=== PATIENT | male | born 1965 | race Two or more races ===

== ENCOUNTER 2024-11-18 11:20 | Outpatient (REF) | payer SELFPAY ==
[2024-11-18 12:58] LABS: MANUAL DIFF FLAG NO
[2024-11-18 13:22] LABS: Basophils Percent Auto 0.5 % (0-2); Eosinophils Absolute Auto 0.1 X10*3/uL (0.0-0.4); Eosinophils Percent Auto 1.5 % (0-4); Hemoglobin 13.8 g/dl (14.0-18.0); Imm Gran Abs Auto 0.01 X10*3/uL (0.00-0.03); Imm Gran Pct Auto 0.3 % (0.0-0.4); Lymphocytes Absolute Auto 1.3 X10*3/uL (1.2-4.9); Mean Corpuscular HGB Conc 32.9 g/dl (31.0-36.0); Mean Corpuscular Volume 88.2 fL (80.0-98.0); Mean Platelet Volume 10.1 fL (9.4-12.4); Monocytes Absolute Auto 0.3 X10*3/uL (0.1-1.2); Neutrophils Absolute Auto 2.2 x10*3/uL (2.0-8.3); Neutrophils Percent Auto 55.7 % (45-73); Platelet Count 246 X10*3/uL (160-400); Red Blood Count 4.76 X10*6/uL (4.60-5.80); White Blood Count 3.9 X10*3/uL (4.8-10.8)
[2024-11-18 13:41] LABS: Alanine Aminotransferase 20 U/L (0-40); Albumin Level 4.2 g/dL (3.5-5.0); Alkaline Phosphatase 62 U/L (39-117); Anion Gap 7 (12-20); Aspartate Amino Transferase 21 U/L (5-37); Bilirubin Total 1.3 mg/dL (0.0-1.0); Blood Urea Nitrogen 17 mg/dL (9-16); Carbon Dioxide 30 mmol/L (22-29); Chloride 105 mmol/L (96-108); Cholesterol 184 mg/dL (<200); Estimated Glomerular Filt Rate > 60; Glucose Random 91 mg/dL (60-115); HDL Cholesterol 58 mg/dL (>40); LDL Cholesterol Calculated 111 mg/dL (<100); Potassium 4.2 mmol/L (3.3-5.1); Sodium 138 mmol/L (135-145); Total Protein 7.2 g/dL (6.5-8.0); Triglycerides 75 mg/dL (<150)
[2024-11-18 13:57] LABS: TSH reflex Free T4 1.11 uIU/mL (0.32-4.0)
[2024-11-18 14:03] LABS: Syphilis Screen Nonreactive (Nonreactive)
[2024-11-18 14:07] LABS: HBS Num1 0.38 mIU/mL (0-7.99); HBc Num1 0.08 S/CO (0.00-0.79); HBsAGNum1 0.34 S/CO (0.00-0.99); HIV AB/AG Nonreactive (Nonreactive); HIV Num 1 0.06 S/CO (0.00-0.99); Hepatitis A Antibody IgM 0.25 Index (0-0.79); Hepatitis B Core Antibody Nonreactive (Nonreactive); Hepatitis B Surface Antigen Negative (Negative); ~HepC Num1 0.11 S/CO (0.00-0.79); ~Hepatitis A Antibody IgM Nonreactive (Nonreactive); ~Hepatitis B Surface Antibody NONREACTIVE (Nonreactive); ~Hepatitis C Antibody Nonreactive (Nonreactive)
[2024-11-18 14:09] LABS: Reflex LDLD? No
== END 2024-11-18 11:21 | disposition home or self-care (01) ==
LOC: HO.HHCL 11:20
PROVIDERS: Visit Provider Internal Medicine
DX: R10.13 Epigastric pain (principal); L65.9 Nonscarring hair loss, unspecified; Z70.8 Other sex counseling
CPT/HCPCS: 36415; 80053; 80061; 84443; 85025; 86704; 86706; 86709; 86780; 86803; 87340; 87389

== ENCOUNTER 2025-03-04 11:21 | Outpatient (REF) | payer OTHER, SELFPAY ==
--- OUTSIDE RECORDS SUMMARY | 2025-02-27 11:15 | XMS_ITS | Encounter Summary ---
Author Organization [facility] Address [address] [facility] [address] [place] [address] Care Team Providers Care Hospital Nurse Name Role Phone Krala Xiao MD Primary Care Provider + Reason for Visit * Reason Comments Annual Exam Encounter Details Date Type Department Care Team ([facility] st Contact Info) Description 02/27/2025 11:15 AM EDT Office Visit C [facility] [address] [place], [place] [id number] TarkaTsering, OD [address] [place] [address] Conjunctival melanosis of both eyes (Primary Dx); Hypermetropia, bilateral; Dry eyes, bilateral; Posterior vitreous detachment of both eyes Social History Tobacco Use Types Packs/Day Years Used Date Smoking Tobacco: Never Smokeless Tobacco: Never Alcohol Use Standard Drinks/Week Comments Never 0 (1 standard drink = 0.6 oz pur e alcohol) Housing Stability Answer Date Recorded What is your housing situation today? I have jorge sing 11/18/[address] you li ve. Do you have problems with any of the following? None of the above 11/18/2024 Food Insecurity Answer Date Recorded Within the past 12 months, y ou worried that your food would run out before you got money to buy more: Never True 11/18/2024 Within the past 12 months,th e food you bought just didn't last and you didn't have enough money to get more: Never True Transportation Answer Date Recorded In the past 12 months, has l ack of transportation kept you from medical appts, meetings, work or from getting things needed for daily living? No 11/18/2024 Utilities Answer Date Recorded In the past 12 months, has t he electric, gas, oil or water company threatened to shut off services in your home? No 11/18/2024 Depression Answer Date Recorded Patient Health Questionnaire-2 Score 0 11/18/2024 Internet Access Answer Date Recorded Internet Access Q1 No 11/18/2024 Internet Access Q2 I do not want or need it 10/31 Sex and Gender Information Value Date Recorded Sex Assigned at Male 07/16/2024 10:18 AM EST Legal Sex Male 10:17 AM EST Gender Identity Male 07/16/2024 10:18 AM EST Sexual Orientation Straight 07/16/2024 10 :18 AM EST documented as of this encounter Progress Notes * Tsering Hudson, OD - 02/27/2025 11:15 AM EDT Eye Care Progress Note Patient ID: Alejandro Vargas is a 59 y.o. male. Chief Complaint Annual Exam HPI Patient reports blurry vision both eyes (OU) at near. Patient has not been wearing any glasses for near. Patient is concerns about brown spots on white of eyes both eyes (OU). PAWAN: 10-15 years Last edited by Tsering Hudson, OD on 02/27/2025 11:49 AM. Current Medications[1] Medical History[2] Surgical History[3] Family History[4] Tobacco Use: Low Risk (02/27/2025) Tobacco Smoking Tobacco Use: Never Smokeless Tobacco Use: Never Passive Exposure: Not on file Allergies[5] ROS Positive for: Eyes Negative for: Constitutional, Gastrointestinal, Neurological, Skin, Genitourinary, Musculoskeletal,HENT, Endocrine, Cardiovascular, Respiratory, Psychiatric, Allergic/Imm, Heme/Lymph Last edited by Tsering Hudson, OD on 02/27/2025 11:49 AM. Base Eye Exam Visual Acuity (Snellen - Linear) Right Left Both Dist sc 20/20-1 20/20-1 Near sc 20/25 Tonometry ([facility] , 11:22 AM) Right Left Pressure 19 18 Pupils Pupils APD Right PERRL None Left PERRL None Visual Ramos (Counting fingers) Left Right Full Full Extraocular Movement Right Left Full Full Neuro/Psych Oriented x3: Yes Mood/Affect: Normal Dilation Both eyes: 1.0% tropicamide @ 11:25AM Slit Lamp and Fundus Exam External Exam Right Left External Normal Normal Slit Lamp Exam Right Left Lids/Lashes 1+ MGD UL/LL, (+) saponification of tear film 1+ MGD UL/LL, (+) saponification of tear film Conjunctiva/Sclera Circumlimbal/diffuse melanosis, 1+ paillae temporal LL Circumlimbal/diffuse melanosis, 1+ paillae temporal LL Cornea Lasik flap with superior hinge, small scar inferior to visual axis, endo pigment inferiorly,(+) Salgado Stahli line Lasik flap with superior hinge, (+) Salgado Stahli line Anterior Chamber Deep and quiet, angles open gr 3 Deep and quiet, angles open gr 3 Iris Flat, round; (-) TID Flat, round; (-) TID Lens Clear Clear Fundus Exam Right Left Vitreous (+) PVD (+) PVD Disc [place] and healthy [place] and healthy C/D Ratio Vertical 0.40 0.45 C/D Ratio Horizontal 0.40 0.45 Macula Flat, even pigmentation; tr ERM nasal Flat, even pigmentation Vessels AV 2/3, normal course and caliber AV 2/3, normal course and caliber Periphery No holes/tears/detachments 360 No holes/tears/detachments 360 Refraction Manifest Refraction Sphere Cylinder Dist VA Add Right +0.50 Sphere 20/20 +2.00 Left +0.50 Sphere 20/20 +2.00 Near VA Both: 20/20 Comments: NRA/PRA: +2.00/-1.50 Final Rx Sphere Cylinder Right +2.50 Sphere Left +2.50 Sphere Expiration Date: 02/27/2026 Assessment and Plan Diagnoses and all orders for this visit: Hypermetropia, bilateral - Dispensed updated spec Rx Dry eyes, bilateral - Recommended the use of artificial tears in both eyes 1gtt 2-4x/day. Patient given handout with OTC drop recommendations. - Patient does warm compresses frequently, continue ORN Conjunctival melanosis of both eyes - Patient educated on benign finding. Advised patient that this is a racial variant. Monitor. Posterior vitreous detachment of both eyes - RTC immediately if flashes/floaters/curtains over vision occur RTC in 2 years for comprehensive eye exam or sooner as needed Tsering Hudson, OD 02/27/2025, 12:10 PM [1] Current Outpatient Medications Medication Sig Dispense Refill sucralfate (Carafate) 1 g tablet TAKE 1 TABLET(1 GRAM) BY MOUTH FOUR TIMES DAILY FOR 20 DAYS 80 tablet 0 No current facility-administered medications for this visit. [2] History reviewed. No pertinent past medical history. [3] Past Surgical History: Procedure Laterality Date REFRACTIVE SURGERY Bilateral [4] No family history on file. [5] No Known Allergies documented in this encounter Plan of Treatment Not on file documented as of this encounter Visit Diagnoses Diagnosis Conjunctival melanosis of both eyes- Primary Hypermetropia, bilateral Dry eyes, bilateral Posterior vitreous detachment of both eyes Vitreous degeneration documented in this encounter Care Teams Hospital Nurse Relationship Specialty Start Date End Date Karla Xiao MD [address] [place] [id number] PCP - General Internal Medicine 11/18/24 documented as of this encounter
--- OUTSIDE RECORDS SUMMARY | 2025-03-04 10:30 | XMS_ITS | Encounter Summary ---
Author Organization [employer] Address [address] [place] [address] Care Team Providers Care Manager Of Operations Name Role Phone Karla Xiao MD Primary Care Provider + Encounter Details Date Type Department Care Team (Late st Contact Info) Description 03/04/2025 10:30 AM EDT Office Visit [facility] [address], [place] [phone] Karla Xiao MD [address] [place], [place] [phone] Change in voice (Primary Dx); Epigastric pain; Tubular adenoma of colon Social History Tobacco Use Types Packs/Day Years Used Date Smoking Tobacco: Never Passive Smoke Exposure: Never Smokeless Tobacco: Never Tobacco Cessation:Counseling Given: Not Answered Alcohol Use Standard Drinks/Week Comments Never 0 (1 standard drink = 0.6 oz pur e alcohol) Depression Answer Date Recorded Patient Health Questionnaire-9 Score 24 03/04/2025 Patient Health Questionnaire-9 Score 24 03/04/2025 Last PHQ-9: Questionnaire Data Not on file 0 03/04/2025 Housing Stability Answer Date Recorded What is your housing situation today? I have jorge sommer 11/18/[address] you li [...] Answer Date Recorded Patient Health Questionnaire-2 Score 6 03/04/2025 Internet Access Answer Date Recorded Internet Access Q1 No 11/18/2024 Internet Access Q2 I do not want or need it 10/31 Sex and Gender Information Value Date Recorded Sex Assigned at Male 07/16/2024 10:18 AM EST Legal Sex Male 10:17 AM EST Gender Identity Male 07/16/2024 10:18 AM EST Sexual Orientation Straight 07/16/2024 10 :18 AM EST documented as of this encounter Last Filed Vital Signs Vital Sign Reading Time Taken Comments Blood Pressure 110/62 03/04/2025 10:28 AM EDT Pulse 82 03/04/2025 10:28 AM EDT Temperature 36.2 C (97.1 F) 03/04/2025 10:28 AM EDT Respiratory Rate 24 03/04/2025 10:28 AM EDT Oxygen Saturation - - Inhaled Oxygen Concentration - - Weight 79.6 kg (175 lb 6.4 oz) 03/04/2025 10:28 AM EDT Height 177.8 cm (5' 10 ) 03/04/2025 10:28 AM EDT Body Mass Index 25.17 03/04/2025 10:28 AM EDT documented in this encounter Functional Status * Over the past 2 weeks, how often have you been bothered by any of the following problems? Question Answer Date of Assessment Author Patient Health Questionnaire -2 Score 6 03/04/2025 11:21 AM EDT Carey Dominguez MA * Little interest or pleasure in doing things Answer Date of Assessment Author Nearly every day 03/04/2025 11:21 AM EDT Carey Dominguez MA * Feeling down, depressed, or hopeless Answer Date of Assessment Author Nearly every day 03/04/2025 11:21 AM EDT Carey Dominguez MA * Trouble falling or staying asleep, or sleeping too much Answer Date of Assessment Author Nearly every day 03/04/2025 11:21 AM Carey Worthy MA * Feeling tired or having little energy Answer Date of Assessment Author Nearly every day 03/04/2025 11:21 AM Carey Worthy MA * Poor appetite or overeating Answer Date of Assessment Author Nearly every day 03/04/2025 11:21 AM Carey Worthy MA * Feeling bad about yourself - or that you are a failure or have let yourself or your family down Answer Date of Assessment Author Nearly every day 03/04/2025 11:21 AM Carey Worthy MA * Trouble concentrating on things, such as reading the newspaper or watching television Answer Date of Assessment Author Nearly every day 03/04/2025 11:21 AM Carey Worthy MA * Moving or speaking so slowly that other people could have noticed? Or the opposite - being so fidgety or restless that you have been moving around a lot more than usual. Answer Date of Assessment Author Nearly every day 03/04/2025 11:21 AM Carey Worthy MA * Thoughts that you would be better off or hurting yourself in some way Answer Date of Assessment Author Not at all 03/04/2025 11:21 AM Carey Worthy MA * Patient Health Questionnaire-9 Score Answer Date of Assessment Author 24 03/04/2025 11:21 AM Carey Worthy MA * Over the last 2 weeks, how often have you been bothered by any of the following problems? Question Answer Date of Assessment Author Feeling nervous, anxious, or on edge 3 03/04/2025 11:20 AM Carey Worthy MA Not being able to stop or co ntrol worrying 3 03/04/2025 11:20 AM Carey Worthy MA Worrying too much about diff erent things 3 03/04/2025 11:20 AM Carey Worthy MA Trouble relaxing 3 03/04/2025 11:20 AM Carey Worthy MA Being so restless that it is hard to sit still 3 03/04/2025 11:20 AM Carey Worthy MA Becoming easily annoyed or irritable 1 03/04/2025 11:20 AM Carey Worthy MA Feeling afraid as if somethi ng awful might happen 3 03/04/2025 11:20 AM EDT Carey Dominguez MA TIGRE-7 Total Score 19 03/04/2025 11:20 AM EDT Carey Dominguez MA documented as of this encounter Miscellaneous Notes * Patient Education Note - Karla Xiao MD - 03/04/2025 3:08 PM EDT Images from the original note were not included. Patient Education Table of Contents ERGE en adultos: qu?? debe saber (GERD in Adults: What to Know) To view videos and all your education online visit, [email or web address] or scan this QR code with your smartphone. Access to this content will in one year. ERGE en adultos: qu?? debe saber GERD in Adults: What to Know El reflujo gastroesof?gico (RGE) es cuando el ?cido del est?kameron sube al es?fago. El es?fago es la parte del cuerpo que transporta los alimentos desde la boca al est?kameron. Normalmente, los alimentos bajan y permanecen en el est?kameron para ser digeridos. Dasha con RGE, los alimentos y el ?cido estomacal pueden volver a subir. Usted puede tener isabella enfermedad llamada enfermedad de reflujo gastroesof?gico (ERGE) si el reflujo: Sucede a menudo. Le causa s?ntomas muy intensos. Hace que el es?fago est?? sensible e hinchado. Con el tiempo, la ERGE puede ocasionar sergei?os agujeros, llamado ?lceras, en el revestimiento del es?fago. ?Cu?les son las causas? La ERGE se debe a un problema en el m?sculo que se encuentra entre el es?fago y el est?kameron. Barb m?sculo se conoce ibrahima esf?nter esof?gico inferior (EEI). Cuando est?? d?dari o no es normal, no se analisa ibrahima deber?a. Bruin significa que los alimentos y el ?cido estomacal pueden subir al es?fago. Barb m?sculo puede estar d?dari si usted: Fuma o consume productos que contienen tabaco. Est?? embarazada. Tiene un tipo de hernia que se llama hernia de hiato. Consume ciertos alimentos y bebidas. Bruin incluye lo siguiente: ? Alcohol. ? Caf?. ? Chocolate. ? Cebollas. ? Menta. ?Qu?? incrementa el riesgo? Tener sobrepeso. Tener isabella enfermedad que afecta el tejido conjuntivo. Analia antiinflamatorios no esteroideos (MELODY) ibrahima el ibuprofeno. ?Cu?les son los signos o s?ntomas? Acidez estomacal. Dificultad para tragar. Dolor al tragar. Sensaci?n de tener un bulto en la garganta. Un sabor amargo en la boca. Mal aliento. Est?kameron inflamado o con malestar. Eructos. Dolor en el pecho. Otras afecciones tambi?n pueden provocar dolor en el pecho. Es importante que consulte al m?dico si siente dolor en el pecho. Sibilancias. Es la emisi?n de sonidos de silbidos agudos al respirar, m?s a menudo al exhalar. Isabella tos a argenis plazo o tos nocturna. ?C?mo se diagnostica? La ERGE se puede diagnosticar en funci?n de los antecedentes m?dicos y de un examen f?sico. Tambi?npueden hacerle pruebas. Pueden incluir: Isabella endoscopia. Esta prueba se hace para observar el est?kameron y el es?fago con isabella c?lorenzo muy sergei?a. Isabella prueba de degluci?n de bario. Esta prueba se hace para observar la forma y el sherice?o del es?fago y determinar si est?? funcionando norman. Estudios del es?fago para revisar lo siguiente: ? Niveles de ?cido. ? Presi?n. ?C?mo se trata? El tratamiento puede depender de la intensidad de los s?ntomas. Puede incluir lo siguiente: Cambios en jordan dieta y viktor cotidiana. Medicamentos. Isabella cirug?a. Siga estas instrucciones en jordan casa: Comida y bebida Siga un plan de alimentaci?n ibrahima se lo haya indicado el m?dico. Es posible que deba evitar ciertos alimentos y bebidas. Pueden incluir: ? Caf?? y t?? basilio, con o sin cafe?na. ? Alcohol. ? Bebidas energ?raymundo y deportivas. ? Bebidas gaseosas o refrescos. ? Chocolate y cacao. ? Menta y esencia de menta. ? [place] y cebolla. ? R?charu picante. ? Alimentos ?cidos y condimentados. Bruin incluye lo siguiente: ? Pimientos. ? [place] en polvo y mobley en polvo. ? Vinagre. ? Salsas picantes y salsa barbacoa. ? C?tricos y jugos. Bruin incluye lo siguiente: ? Naranjas. ? Hank. ? Colin. ? Alimentos que contengan tomate. Bruin incluye lo siguiente: ? Salsa gab y pizza con salsa gab. ? [place]. ? Salsa. ? Alimentos fritos y grasos. Bruin incluye lo siguiente: ? Rosquillas. ? Duke fritas. ? Duke fritas en bolsa. ? Aderezos con alto contenido de grasa. ? German con alto contenido de grasa. Bruin incluye lo siguiente: ? Perros calientes y salchichas. ? Chuletas. ? Jam?n y tocino. ? Productos l?cteos ricos en grasas. Bruin incluye lo siguiente: ? Leche entera. ? [place]. ? Queso crema. Consuma sergei?as cantidades de comida con m?s frecuencia. No consuma grandes cantidades de comida. Evite beber mucho l?quido con las comidas. Intente no comer erick las 2 o 3?horas previas a acostarse. Trate de no acostarse inmediatamente despu?s de comer. No lynda ejercicios ian despu?s de comer. Estilo de viktor Si tiene sobrepeso, baje isabella cantidad de peso que sea saludable para usted. Consulte a jordan m?dico para bajar de peso de manera hyatt. No fume, vapee ni consuma nicotina o tabaco. Use ropa holgada. No use nada apretado alrededor de la cintura. A la hora de dormir, pruebe lo siguiente: ? Levante la cabecera de la cama aproximadamente 6?pulgadas (15?cm). Para hacerlo puede usar isabella cu?a. ? Acu?stese del lado eddie. Intente reducir el nivel de estr?s. Si necesita ayuda para lograrlo, consulte a jordan m?dico. Instrucciones generales [place] cheryle medicamentos ?nicamente seg?n las indicaciones. No tome aspirina ni ibuprofeno a menos que se lo indiquen. Controle si hay alg?n cambio en cheryle s?ntomas. No se incline hacia adelante si eso empeora cheryle s?ntomas. Comun?quese con un m?dico si: Aparecen nuevos s?ntomas. Tiene dificultad para hacer lo siguiente: ? Beber. ? [place]agar. ? [place]. Siente dolor al tragar. Tiene sibilancias. Tiene tos que no desaparece. Tiene ronquera. Los s?ntomas no mejoran con el tratamiento. Solicite ayuda de inmediato si: Siente un dolor repentino en estas partes del cuerpo: ? El brazo. ? El devi. ? La nancy?bula. ? Los dientes. ? La espalda. De repente se siente transpirado, mareado o aturdido. Se desmaya. Siente falta de aire o dolor en el pecho. Vomita, y el v?cristino: ? Es valarie, amarillo o basilio. ? Parece tener gina o borra de caf?. Defeca y las heces son saenz, sanguinolentas o negras. Estos s?ntomas pueden indicar isabella emergencia. Llame al 911 de inmediato. No espere a lakshmi si los s?ntomas desaparecen. No conduzca por cheryle propios medios hasta el hospital. Esta informaci?n no tiene ibrahima fin reemplazar el consejo del m?dico. Aseg?rese de hacerle al m?dicocualquier pregunta que tenga. Document Released: 2006-03-29 Document Updated: 2024-01-01 Document Reviewed: 2024-01-01 [employer] Patient Education ? 2024 engageSimply. * Patient Education Note - Karla Xiao MD - 03/04/2025 3:07 PM EDT Images from the original note were not included. Patient Education Table of Contents ERGE en adultos: cambios en la dieta (GERD in Adults: Diet Changes) To view videos and all your education online visit, [email or web address].com/[email or web address] or scan this QR code with your smartphone. Access to this content will in one year. ERGE en adultos: cambios en la dieta GERD in Adults: Diet Changes Cuando isabella persona tiene enfermedad de reflujo gastroesof?gico (ERGE), es posible que deba hacer cambios en jordan dieta. Elegir los alimentos adecuados puede ayudar a aliviar los s?ntomas. Considere recurrir a un experto en alimentaci?n saludable llamado nutricionista. Barb puede ayudarlo a hacer elecciones alimentarias saludables. Consejos para seguir barb plan Al leer las etiquetas de los alimentos Elija alimentos que tengan bajo contenido de grasas saturadas. Los alimentos que pueden ayudar con los s?ntomas incluyen los siguientes: Alimentos con menos del 5?% de los valores diarios (VD) de grasa. Alimentos con 0?gramos de grasas trans. Al cocinar Cocine los alimentos de formas que no requieran wilmer grasa. Estas formas incluyen las siguientes: ? Hornear. ? Cocer al vapor. ? Grillar. ? Hervir. Para agregar sabor, trate de consumir hierbas con bajo contenido de picante y acidez. Evite cynthia?r los alimentos. Planificaci?n de las comidas Lynda comidas sergei?as erick el d?a en lugar de hacer 3?comidas abundantes. Coma lentamente y en un lugar donde se sienta relajado. Si se lo indic?? el m?dico, evite: ? Consumir alimentos que le ocasionen s?ntomas. Lleve un registro de los alimentos para identificaraquellos que le causen s?ntomas. ? Alcohol. ? Beber wilmer cantidad de l?quido con las comidas. Instrucciones generales Erick 2 a 3?horas despu?s de comer, evite: ? Agacharse. ? Realizar actividad f?paco. ? Acostarse. Masticar chicle sin az?car despu?s de las comidas. ?Qu?? alimentos kristen comer? Siga isabella dieta saludable. Trate de incluir: Alimentos con gran cantidad de fibra. Bruin incluye lo siguiente: ? Frutas y verduras. ? Cereales integrales y legumbres. Productos l?cteos con bajo contenido de grasa. Carne magra, pescado y aves. Claras de huevo. Los alimentos que causan s?ntomas en otra persona pueden no causarle s?ntomas a usted. Trabaje con el m?dico para hallar alimentos que emma seguros para usted. Es posible que los productos que se enumeran m?s arriba no emma todos los alimentos y las bebidas que puede consumir. Consulte a jordan nutricionista para obtener m?s informaci?n. Es posible que los productos detallados arriba no constituyan isabella lista completa de los alimentos ylas bebidas que puede analia. Consulte a un nutricionista para obtener m?s informaci?n. ?Qu?? alimentos kristen evitar? Limitar algunos de estos alimentos puede ayudar a aliviar los s?ntomas. Cada persona es diferente. Hable con un nutricionista o con jordan m?dico para que lo ayude a conocer los alimentos exactos que debe evitar. Algunos de los alimentos que evitar pueden incluir: Frutas Frutas que emma muy ?cidas. Estas pueden ser las frutas c?tricas ibrahima la naranja, el pomelo, la pi?a y el petersen?n. Verduras Verduras fritas, ibrahima las duke fritas. Verduras, salsas o aderezos elaborados con grasa agregada y verduras ?cidas. Estos pueden incluir los tomates y los productos con tomate, el aj?, la cebolla, el ajo y el r?charu picante. Cereales Pasteles o panes sin levadura con grasa agregada. German y otras prote?bere German de alto contenido graso ibrahima carne grasa de andres o cerdo, salchichas, costillas, jam?n, salchicha, chuy y tocino. German o prote?bere fritas, ibrahima el pescado frito y el natalie frito. Yemas de huevo. Grasas y aceites [place]. Margarina. Lardo. [place] clarificada. Bebidas Caf?? y otras bebidas con cafe?na. Bebidas gaseosas y azucaradas, ibrahima los refrescos y las bebidas energizantes. Jugo de fruta hecho con frutas ?cidas, ibrahima naranja o pomelo. Jugo de tomate. Dulces y postres Chocolate y cacao. [place]. Ali?os y condimentos Menta, ibrahima la menta piperita y la hierbabuena. Condimentos, hierbas o aderezos que ocasionen s?ntomas. Estos pueden incluir el mobley, la salsa picante o los aderezos para ensalada a base de vinagre. Es posible que los productos que se enumeran m?s arriba no emma todos los alimentos y las bebidas que debe evitar. Consulte a jordan nutricionista para obtener m?s informaci?n. Preguntas para hacerle al m?dico Los cambios en la dieta y en la viktor cotidiana a menudo son los primeros pasos que se bright para manejar los s?ntomas de ERGE. Si estos cambios no tunde resultados, consulte al m?dico si debe analia medicamentos. D?nde obtener m?s informaci?n International Foundation for Gastrointestinal Disorders (Fundaci?n Internacional para los Trastornos Gastrointestinales): aboutgerd.org Esta informaci?n no tiene ibrahima fin reemplazar el consejo del m?dico. Aseg?rese de hacerle al m?dicocualquier pregunta que tenga. Document Released: 2006-03-29 Document Updated: 2024-01-01 Document Reviewed: 2024-01-01 Elsevier Patient Education ? 2024 engageSimply. * Patient Education Note - Karla Xiao MD - 03/04/2025 3:06 PM EDT Images from the original note were not included. Patient Education Table of Contents ERGE en adultos: cambios en la dieta (GERD in Adults: Diet Changes) To view videos and all your education online visit, [email or web address] or scan this QR code with your smartphone. Access to this content will in one year. ERGE en adultos: cambios en la dieta GERD in Adults: Diet Changes Cuando isabella persona tiene enfermedad de reflujo gastroesof?gico (ERGE), es posible que deba hacer cambios en jordan dieta. Elegir los alimentos adecuados puede ayudar a aliviar los s?ntomas. Considere recurrir a un experto en alimentaci?n saludable llamado nutricionista. Barb puede ayudarlo a hacer elecciones alimentarias saludables. Consejos para seguir barb plan Al leer las etiquetas de los alimentos Elija alimentos que tengan bajo contenido de grasas saturadas. Los alimentos que pueden ayudar con los s?ntomas incluyen los siguientes: Alimentos con menos del 5?% de los valores diarios (VD) de grasa. Alimentos con 0?gramos de grasas trans. Al cocinar Cocine los alimentos de formas que no requieran wilmer grasa. Estas formas incluyen las siguientes: ? Hornear. ? Cocer al vapor. ? Grillar. ? Hervir. Para agregar sabor, trate de consumir hierbas con bajo contenido de picante y acidez. Evite cynthia?r los alimentos. Planificaci?n de las comidas Lynda comidas sergei?as erick el d?a en lugar de hacer 3?comidas abundantes. Coma lentamente y en un lugar donde se sienta relajado. Si se lo indic?? el m?dico, evite: ? Consumir alimentos que le ocasionen s?ntomas. Lleve un registro de los alimentos para identificaraquellos que le causen s?ntomas. ? Alcohol. ? Beber wilmer cantidad de l?quido con las comidas. Instrucciones generales Erick 2 a 3?horas despu?s de comer, evite: ? Agacharse. ? Realizar actividad f?paco. ? Acostarse. Masticar chicle sin az?car despu?s de las comidas. ?Qu?? alimentos kristen comer? Siga isabella dieta saludable. Trate de incluir: Alimentos con gran cantidad de fibra. Bruin incluye lo siguiente: ? Frutas y verduras. ? Cereales integrales y legumbres. Productos l?cteos con bajo contenido de grasa. Carne magra, pescado y aves. Claras de huevo. Los alimentos que causan s?ntomas en otra persona pueden no causarle s?ntomas a usted. Trabaje con el m?dico para hallar alimentos que emma seguros para usted. Es posible que los productos que se enumeran m?s arriba no emma todos los alimentos y las bebidas que puede consumir. Consulte a jordan nutricionista para obtener m?s informaci?n. Es posible que los productos detallados arriba no constituyan isabella lista completa de los alimentos ylas bebidas que puede analia. Consulte a un nutricionista para obtener m?s informaci?n. ?Qu?? alimentos kristen evitar? Limitar algunos de estos alimentos puede ayudar a aliviar los s?ntomas. Cada persona es diferente. Hable con un nutricionista o con jordan m?dico para que lo ayude a conocer los alimentos exactos que debe evitar. Algunos de los alimentos que evitar pueden incluir: Frutas Frutas que emma muy ?cidas. Estas pueden ser las frutas c?tricas ibrahima la naranja, el pomelo, la pi?a y el petersen?n. Verduras Verduras fritas, ibrahima las duke fritas. Verduras, salsas o aderezos elaborados con grasa agregada y verduras ?cidas. Estos pueden incluir los tomates y los productos con tomate, el aj?, la cebolla, el ajo y el r?charu picante. Cereales Pasteles o panes sin levadura con grasa agregada. German y otras prote?bere German de alto contenido graso ibrahima carne grasa de andres o cerdo, salchichas, costillas, jam?n, salchicha, chuy y tocino. German o prote?bere fritas, ibrahima el pescado frito y el natalie frito. Yemas de huevo. Grasas y aceites [place]. Margarina. Lardo. [place] clarificada. Bebidas Caf?? y otras bebidas con cafe?na. Bebidas gaseosas y azucaradas, ibrahima los refrescos y las bebidas energizantes. Jugo de fruta hecho con frutas ?cidas, ibrahima naranja o pomelo. Jugo de tomate. Dulces y postres Chocolate y cacao. [place]. Ali?os y condimentos Menta, ibrahima la menta piperita y la hierbabuena. Condimentos, hierbas o aderezos que ocasionen s?ntomas. Estos pueden incluir el mobley, la salsa picante o los aderezos para ensalada a base de vinagre. Es posible que los productos que se enumeran m?s arriba no emma todos los alimentos y las bebidas que debe evitar. Consulte a jordan nutricionista para obtener m?s informaci?n. Preguntas para hacerle al m?dico Los cambios en la dieta y en la viktor cotidiana a menudo son los primeros pasos que se bright para manejar los s?ntomas de ERGE. Si estos cambios no tunde resultados, consulte al m?dico si debe analia medicamentos. D?nde obtener m?s informaci?n International Foundation for Gastrointestinal Disorders (Fundaci?n Internacional para los Trastornos Gastrointestinales): aboutgerd.org Esta informaci?n no tiene ibrahima fin reemplazar el consejo del m?dico. Aseg?rese de hacerle al m?dicocualquier pregunta que tenga. Document Released: 2006-03-29 Document Updated: 2024-01-01 Document Reviewed: 2024-01-01 Elsevier Patient Education ? 2024 [employer] documented in this encounter Plan of Treatment Not on file documented as of this encounter Visit Diagnoses Diagnosis Change in voice- Primary Other voice and resonance disorders Epigastric pain Abdominal pain, epigastric Tubular adenoma of colon Benign neoplasm of colon documented in this encounter Additional Health Concerns Assessment Noted Time PHQ-9 Depression Total Score: 24 025 11:21 AM EDT documented as of this encounter Care Teams Manager Of Operations Relationship Specialty Start Date End Date Karla Xiao MD [address] [place] [address] PCP - General Internal Medicine 11/18/24 documented as of this encounter
--- OUTSIDE RECORDS SUMMARY | 2025-03-04 13:07 | XMS_ITS | Encounter Summary ---
Author Organization [employer] Address [address] [place] [address] Care Team Providers Care Metal Control Worker Name Role Phone Karla Xiao MD Primary Care Provider + Encounter Details Date Type Department Care Team (Latest Contact Info) Description 02/27/2025 Travel Social History Tobacco Use Types Packs/Day Years [...] AM EST documented as of this encounter Plan of Treatment Not on file documented as of this encounter Visit Diagnoses Not on filedocumented in this encounter Care Teams Metal Control Worker Relationship Specialty Start Date End Date Karla Xiao MD [address] [place] [phone] PCP - General Internal Medicine 11/18/24 documented as of this encounter
--- OUTSIDE RECORDS SUMMARY | 2025-03-04 13:07 | XMS_ITS | Encounter Summary ---
Author Organization [employer] Address [address] [facility] [address] [place] [address] Care Team Providers Care Latin Professor Name Role Phone Karla Xiao MD Primary Care Provider + Encounter Details Date Type Department Care Team (Latest Contact Info) Description 03/04/2025 Travel Social History Tobacco Use Types Packs/Day Years Used Date Smoking Tobacco: Never Passive Smoke Exposure: Never Smokeless Tobacco: Never Alcohol Use Standard [...] AM EST documented as of this encounter Functional Status * Over the past 2 weeks, how often have you been bothered by any of the following problems? Question Answer Date of Assessment Author Patient Health Questionnaire -2 Score 6 03/04/2025 11:21 AM EDT Carey Dominguez MA * Little interest or pleasure in doing things Answer Date of Assessment Author Nearly every day 03/04/2025 11:21 AM EDCarey Shaw MA * Feeling down, depressed, or hopeless Answer Date of Assessment Author Nearly every day 03/04/2025 11:21 AM CARLITOST Carey Dominguez MA * Trouble falling or staying asleep, or sleeping too much Answer Date of Assessment Author Nearly every day 03/04/2025 11:21 AM EDCarey Shaw MA * Feeling tired or having little energy Answer Date of Assessment Author Nearly every day 03/04/2025 11:21 AM CARLITOST Carey Dominguez MA * Poor appetite or overeating Answer Date of Assessment Author Nearly every day 03/04/2025 11:21 AM EDT Carey Dominguez MA * Feeling bad about yourself - or that you are a failure or have let yourself or your family down Answer Date of Assessment Author Nearly every day 03/04/2025 11:21 AM Carey Worthy MA * Trouble concentrating on things, such as reading the newspaper or watching television Answer Date of Assessment Author Nearly every day 03/04/2025 11:21 AM CARLITOST Carey Dominguez MA * Moving or speaking so slowly [...] Author Not at all 03/04/2025 11:21 AM EDT Carey Dominguez MA * Patient Health Questionnaire-9 Score Answer Date of Assessment Author 03/04/2025 11:21 AM EDT Carey Dominguez MA * Over the last 2 weeks, how often have you been bothered by any of the following problems? Question Answer Date of Assessment Author Feeling nervous, anxious, or on edge 3 03/04/2025 11:20 AM EDT Carey Dominguez MA Not being able to stop or co ntrol worrying 3 03/04/2025 11:20 AM EDT Carey Dominguez MA Worrying too much about diff erent things 3 03/04/2025 11:20 AM EDT Carey Dominguez MA Trouble relaxing 3 03/04/2025 11:20 AM EDT Carey Dominguez MA Being so restless that it is hard to sit still 3 03/04/2025 11:20 AM EDT Carey Dominguez MA Becoming easily annoyed or irritable 1 03/04/2025 11:20 AM EDT Carey Dominguez MA Feeling afraid as if somethi ng awful might happen 3 03/04/2025 11:20 AM EDT Carey Dominguez MA TIGRE-7 Total Score 19 03/04/2025 11:20 AM EDT Carey Dominguez MA documented as of this encounter Plan of Treatment Not on file documented as of this encounter Visit Diagnoses Not on filedocumented in this encounter Additional Health Concerns Assessment Noted Time PHQ-9 Depression Total Score: 025 11:21 AM EDT documented as of this encounter Care Teams Latin Professor Relationship Specialty Start Date End Date Karla Xiao MD [address] [place] [phone] PCP - General Internal Medicine 11/18/24 documented as of this encounter
--- OUTSIDE RECORDS SUMMARY | 2025-03-04 13:07 | XMS_ITS | Clinical Summary ---
Author Organization [employer] Address [address] [facility] [address] [place] [address] Care Team Providers Care Transfer Table Operator Helper Name Role Phone Karla Xiao MD Primary Care Provider + Allergies No known active allergies Medications sucralfate (Carafate) 1 g tablet Take 1 tablet (1 g) by mouth before breakfast, before lunch, and before evening meal. 60 tablet 03/04/20 25 Active sucralfate (Carafate) 1 g tablet TAKE 1 TABLET(1 GRAM) BY MOUTH FOUR TIMES DAILY FOR 20 DAYS 80 tablet 12/10/19 25 025 Discontinued(Re order (will not trigger notification to Pharmacy)) Active Problems Problem Noted Date Diagnosed Date Sexually transmitted disease counseling 11/20/19 Assessment & Plan (11/19/2024 8:53 AM EDT): We discussed about condom use, he agreed to STI testing Hair loss 11/19/2024 Assessment & Plan (11/19/2024 8:53 AM EDT): Most likely familiar, ordered TSH and follow-up with me Epigastric pain 11/18/2024 Assessment & Plan (11/19/2024 8:53 AM EDT): Rule out H. pylori infection, apparently never treated. Start sucralfate 1 g 3 times daily AC meals x 2 weeks and follow-up with me Order labs We discussed about lifestyle modifications including avoiding sodas, fat and greasy foods, high calorie meals. Advised to have small fracture meals Advised regarding increase water intake and fiber. H. pylori infection 11/15/2024 Change in voice 11/15/2024 Left knee pain 11/15/2024 Low back pain 11/15/2024 Shoulder pain 11/15/2024 Tubular adenoma of colon 11/15/2024 Overview (11/18/2024): Sp colonoscopy at [facility] on 06/2021 Assessment & Plan (11/18/2024 10:30 AM EDT): Sp colonoscopy at [facility] on 06/2021 Next colonoscopy due on 2025 Resolved Problems Problem Noted Date Diagnosed Date Resolved Date Decreased vision in both eyes 11/19/2024 02/27/2025 Assessment & Plan (11/19/2024 8:52 AM EDT): Refer to ophthalmology/eye clinic Chalazion of right upper eyelid 11/18/2024 02/27/2025 Assessment & Plan (11/19/2024 8:52 AM EDT): Reassurance, advised to apply heat to affected area, keep area clean and dry Needs routine eye clinic evaluation Encounters Date Type Department Care Team Description 03/04/2025 10:30 AM EDT Office Visit [facility] [address] [place] [address] [phone] Karla Xiao MD Change in voice (Primary Dx); Epigastric pain; Tubular adenoma of colon 03/04/2025 Travel 02/27/2025 11:15 AM EDT Office Visit [facility] [address] [place], [place] [phone] Tsering Hudson, OD Conjunctival melanosis of both eyes (Primary Dx); Hypermetropia, bilateral; Dry eyes, bilateral; Posterior vitreous detachment of both eyes 02/27/2025 Travel 02/26/2025 Telephone [facility] [address] [place] [address] [phone] Karla Xiao MD Chart Prep 12/10/2024 Telephone [facility] [address] [place] [phone] Karla Xiao MD Appointment Request 12/06/2024 Refill [facility] [address] [place] [address] [phone] Karla Xiao MD from Last 3 Months Immunizations Immunization Administration Dates Next Due Influenza injectable quadriv alent preservative free 04/20/2023,05/23/2022,06/25/2021 Influenza, IIV3, injectable 06/25/2021 Influenza, seasonal, injecta ble, preservative free 04/17/2024 Social History Tobacco Use Types Packs/Day Years [...] is your housing situation today? I have jorgestew sommer 11/18/[address] you [...] Orientation Straight 07/16/2024 10 :18 AM EST Last Filed Vital Signs Vital Sign Reading Time Taken Comments Blood Pressure 110/62 03/04/2025 10:28 AM EDT Pulse 82 03/04/2025 10:28 AM EDT Temperature 36.2 C (97.1 F) 03/04/2025 10:28 AM EDT Respiratory Rate 24 03/04/2025 10:28 AM EDT Oxygen Saturation 99% 11/18/2024 10:15 AM EDT Inhaled Oxygen Concentration - - Weight 79.6 kg (175 lb 6.4 oz) 03/04/2025 10:28 AM EDT Height 177.8 cm (5' 10 ) 03/04/2025 10:28 AM EDT Body Mass Index 25.17 03/04/2025 10:28 AM EDT Plan of Treatment Health Maintenance Due Date Last Done Comments CT Colonography 1967 Colonoscopy 1967 Colorectal Cancer Screening 1967 FIT DNA/Cologuard 1967 FIT 1967 FOBT 1967 Sigmoidoscopy 1967 DTaP/Tdap/Td Vaccines (1 - Tdap) 10/02/1986 Hepatitis B Vaccines (1 of 3 - 19+ 3-dose series) 10/02/1986 Pneumococcal Vaccine: 50+ Years (1 of 1 - PCV) 10/02/2017 Zoster Vaccines (1 of 2) 10/02/2017 COVID-19 Vaccine (3 - season) 2025 05/23/2022, 06/25/2021 Influenza Vaccine (#1) 2025 , 04/20/2023, 05/23/2022, Additional history exists Depression Monitoring 09/01/2025 03/04/2025, 025 Disability Screening 11/18/2025 11/18/2024 SDOH Screening 11/18/2025 11/18/2024 Alcohol/Substance Use Screening 03/04/2026 03/04/2025 Tobacco Screening 03/04/2026 03/04/2025 Lipid Panel 11/18/2029 11/18/2024 RSV Patients and Patients Aged 60 years or older (1 - 1-dose 75+ series) 10/02/2042 HIV Screening Completed 11/18/2024 Hepatitis C Screening Completed 11/18/2024 HIB Vaccines Aged Out No longer eligi ble based on patient's age to complete this topic HPV Vaccines Aged Out No longer eligi ble based on patient's age to complete this topic Hepatitis A Vaccines Aged Out No long er eligible based on patient's age to complete this topic IPV Vaccines Aged Out No longer eligi ble based on patient's age to complete this topic Meningococcal B Vaccine Aged Out No l onger eligible based on patient's age to complete this topic Meningococcal Vaccine Aged Out No afshin emperatriz eligible based on patient's age to complete this topic RSV under 20 months Aged Out No longe r eligible based on patient's age to complete this topic Rotavirus Vaccines Aged Out No longer eligible based on patient's age to complete this topic Procedures Procedure Name Priority Date/Time Associated Diagnosis Comments HEPATITIS PANEL, GENERAL Routine 11/18/2024 11:24 AM EDT Sexually transmitted disease counseling HIV 1/2 ANTIGEN/ANTIBODY, FOURTH GENERATION W/RFL Routine 11/18/2024 11:24 AM EDT Sexually transmitted disease counseling LIPID PANEL WITH REFLEX TO DIRECT LDL Routine 11/18/2024 11:24 AM EDT Epigastric pain from Last 3 Months or Most Recently Relevant to Health Maintenance Results * (ABNORMAL) Lipid Panel with Reflex to Direct LDL (11/18/2024 11:24 AM EDT) Triglycerides 75 <150 mg/dL [facility] Comment:Desirable Triglyceri de: less than 150 mg/dLBorderline High Triglyceride 150-199 mg/dLHigh Triglyceride: 200-499 mg/dLVery High Triglyceride: greater than or equal to 5OO mg/dL Cholesterol 184 <200 mg/dL [facility] Comment:Desirable Cholestero l: less than 200 mg/dLBorderline High Cholesterol: 200-239 mg/dLHigh Cholesterol: greater than 239 mg/dL LDL Cholesterol Calculated 111(H) <100 mg/dL [facility] Comment:Desirable LDL: less than 100 mg/dLNear Optimal/Above Optimal LDL: 110- 129 mg/dLBorderline High LDL: 130-159 mg/dLHigh LDL: 160-189 mg/dLVery High LDL: greater than or equal to 190 mg/dL HDL Cholesterol 58 >40 mg/dL [facility] Comment:Desirable HDL: great er than 40 mg/dL Note: This HDL assay may give artificially low results in patients with liver disease. Blood 11/18/2024 11:2 4 AM EDT 11/18/2024 12:55 PM EDT Karla Xiao MD LAB BLOOD ORDERABLES Fin al Result Performing Organization Address [facility]/ZIP Co de Phone Number [facility] [address] [place] [phone] * Hepatitis Panel, General (11/18/2024 11:24 AM EDT) Hepatitis A IgM Nonreactive Nonreactive [facility] Comment:IgM antibodies to JEWELL V not detected; does not exclude earlyacute or recovered HAV infection. ~Hepatitis B Surface Antibody NONREACTIVE Nonreactive [facility] Comment:Nonreactive: < 8.00 mIU/mL Hepatitis B Core Antibody Nonreactive Nonreactive [facility] Hepatitis C Antibody Nonreactive Nonreactive [facility] Comment:Antibodies to HCV no t detected; does not exclude early acuteHCV infection. Hepatitis B Surface Ag Negative Negative [facility] Blood 11/18/2024 11:2 4 AM EDT 11/18/2024 12:55 PM EDT Karla Xiao MD LAB BLOOD ORDERABLES Fin al Result Performing Organization Address [facility]/ZIP Co de Phone Number [facility] [address] [place] [phone] * HIV-1/2 Antigen and Antibodies, Fourth Generation, with Reflexes (11/18/2024 11:24 AM EDT) HIV AB/AG Nonreactive Nonreactive [facility] Comment:HIV-1 p24 Ag and/or HIV-1/HIV-2 Ab not detected.A test result that is nonreactive does not exclude thepossibility of exposure to or infection with HIV-1 and/orHIV-2. Nonreactive results in this assay for individualswith prior exposure to HIV-1 and/or HIV-2 may be due toantigen and antibody levels that are below the limit ofdetection of this assay.The [employer] HIV Ag/Ab Combo assay result andsupplemental assay results should be interpreted inconjunction with the patient's clinical presentation,history and other laboratory results. If the results areinconsistent with clinical evidence, additional testing issuggested to confirm the result. Blood Venous blood specimen / Unknown 11/18/2024 11:24 AM EDT 11/18/2024 12:55 PM EDT us Karla Xiao MD LAB BLOOD ORDERABLES Fin al Result [facility] [address] [place] [phone] from Last 3 Months or Most Recently Relevant to Health Maintenance Insurance [facility] , [address] [place] [address] Care Teams Transfer Table Operator Helper Relationship Specialty Start Date End Date Karla Xiao MD [address] [place] [phone] PCP - General Internal Medicine 11/18/24
[2025-03-04 16:34] LABS: CT PCR Urine NOT DETECTED (Not Detect.); NG PCR Urine NOT DETECTED (Not Detect.)
== END 2025-03-04 11:22 | disposition home or self-care (01) ==
LOC: HO.HHCL 11:21
PROVIDERS: PCP Internal Medicine; Visit Provider Internal Medicine
DX: Z70.8 Other sex counseling (principal); Z20.2 Contact with and (suspected) exposure to infections with a predominantly sexual mode of transmission
CPT/HCPCS: 87491; 87591

== ENCOUNTER 2025-03-05 12:59 | Outpatient (REF) | payer OTHER, SELFPAY ==
--- OUTSIDE RECORDS SUMMARY | 2025-03-04 10:30 | XMS_ITS | Encounter Summary ---
Author Organization [employer] Address [address] [place] [address] Care Team Providers Care Silviculture Professor Name Role Phone Karla Xiao MD Primary Care Provider + Encounter Details Date Type Department Care Team (Late st Contact Info) Description 03/04/2025 10:30 AM EDT Office Visit [facility] [address], [place] [phone] Karla Xiao MD [address] [place], [place] [phone] Epigastric pain (Primary Dx); Change in voice; Overweight; Dietary counseling; Exercise counseling Social History Tobacco Use Types Packs/Day Years [...] EDT Carey Dominguez MA TIGRE-7 Total Score 03/04/2025 11:20 AM EDT Carey Dominguez MA documented as of this encounter Progress Notes * Karla Xiao MD - 03/04/2025 10:30 AM EDT SUBJECTIVE: Alejandro Vargas is a 59 y.o. year old male who presents for follow up abd ain/labs. Denies recent illness, injury, or hospitalization. Labs on 11/18/2024 showed fairly normal lipids, TSH, STI testing, CBC, CMP. Patient did not have H. pylori testing done. His nausea and abd pain improved significantly by dietary modifications, avoiding soda, fried foodsand having 3x meals per day. He has hx TA on 2020 Acute Concerns: Social History Social History Narrative Not on file Problem List[1] Family History[2] Review of Systems Constitutional: Negative for fever. HENT: Negative for congestion, ear pain, rhinorrhea and sore throat. Eyes: Negative for pain and discharge. Respiratory: Negative for cough and shortness of breath. Cardiovascular: Negative for chest pain. Gastrointestinal: Positive for nausea. Negative for abdominal pain, constipation and diarrhea. Endocrine: Negative for polydipsia. Genitourinary: Negative for dysuria and frequency. Musculoskeletal: Negative for arthralgias, back pain and neck pain. Neurological: Negative for dizziness, numbness and headaches. Psychiatric/Behavioral: Negative for agitation. OBJECTIVE: Vitals: 03/04/25 1028 BP: 110/62 Pulse: 82 Resp: 24 Temp: 97.1 ??F (36.2 ??C) Physical Exam Constitutional: Appearance: Normal appearance. HENT: Right Ear: Tympanic membrane and ear canal normal. Left Ear: Tympanic membrane and ear canal normal. Mouth/Throat: Mouth: Mucous membranes are moist. Pharynx: No oropharyngeal exudate or posterior oropharyngeal erythema. Eyes: Pupils: Pupils are equal, round, and reactive to light. Cardiovascular: Rate and Rhythm: Normal rate and regular rhythm. Heart sounds: No murmur heard. Pulmonary: Breath sounds: Normal breath sounds. No wheezing. Abdominal: General: Bowel sounds are normal. Palpations: Abdomen is soft. Tenderness: There is abdominal tenderness in the right upper quadrant, epigastric area and left upper quadrant. There is no guarding or rebound. Negative signs include Venegas's sign. Musculoskeletal: General: No tenderness. Normal range of motion. Cervical back: Normal range of motion. No tenderness. Skin: General: Skin is warm. Neurological: General: No focal deficit present. Mental Status: He is alert and oriented to person, place, and time. Psychiatric: Mood and Affect: Mood normal. Problem List Items Addressed This Visit Epigastric pain - Primary Most likely related to GERD, continue sucralfate as needed for now, stressed importance of dietary modifications Stressed importance of checking H. pylori infection, will treat as needed Follow-up with me in 3 months, may need GI referral Relevant Medications sucralfate (Carafate) 1 g tablet Change in voice Most likely related to GERD. Currently asymptomatic, will follow-up as needed, patient is a non-smoker Other Visit Diagnoses Overweight Slight weight gain since last visit. We discussed about healthy diet, follow-up at next visit Dietary counseling Exercise counseling Follow Up: Medications Ordered Prior to Encounter[3] [1] Patient Active Problem List Diagnosis H. pylori infection Change in voice Left knee pain Low back pain Shoulder pain Tubular adenoma of colon Epigastric pain Sexually transmitted disease counseling Hair loss [2] No family history on file. [3] Current Outpatient Medications on File Prior to Visit Medication Sig Dispense Refill [DISCONTINUED] sucralfate (Carafate) 1 g tablet TAKE 1 TABLET(1 GRAM) BY MOUTH FOUR TIMES DAILY FOR20 DAYS 80 tablet 0 No current facility-administered medications on file prior to visit. documented in this encounter Miscellaneous Notes * Assessment & Plan Note - Karla Xiao MD - 03/04/2025 5:02 PM EDT Associated Problem(s): Epigastric pain Most likely related to GERD, continue sucralfate as needed for now, stressed importance of dietary modifications Stressed importance of checking H. pylori infection, will treat as needed Follow-up with me in 3 months, may need GI referral * Assessment & Plan Note - Karla Xiao MD - 03/04/2025 5:01 PM EDT Associated Problem(s): Change in voice Most likely related to GERD. Currently asymptomatic, will follow-up as needed, patient is a non-smoker * Patient Education Note - Karla Xiao MD - 03/04/2025 3:08 PM EDT Images from the original note were not included. Patient Education Table of Contents ERGE en adultos: qu?? debe rufus (GERD in Adults: What to Know) To view videos and all your education online visit, [email or web address] or scan this QR code with your [...] es normal, no se analisa ibrahima deber?a. Brewer significa que los alimentos y el ?cido estomacal pueden subir al es?fago. Barb m?sculo puede estar d?dari si usted: Fuma o consume productos que contienen tabaco. Est?? embarazada. Tiene un tipo de hernia que se llama hernia de hiato. Consume ciertos alimentos y bebidas. Brewer incluye lo siguiente: ? Alcohol. ? Caf?. [...] ? Menta y esencia de menta. ? [place] y cebolla. ? R?charu picante. ? Alimentos ?cidos y condimentados. Brewer incluye lo siguiente: ? Pimientos. ? [place] en polvo y mobley en polvo. ? Vinagre. ? Salsas picantes y salsa barbacoa. ? C?tricos y jugos. Brewer incluye lo siguiente: ? Naranjas. ? Hnak. ? Colin. ? Alimentos que contengan tomate. Brewer incluye lo siguiente: ? Salsa gab y pizza con salsa gab. ? Chile. ? Salsa. ? Alimentos fritos y grasos. Brewer incluye lo siguiente: ? Rosquillas. ? Duke fritas. ? Duke fritas en bolsa. ? Aderezos con alto contenido de grasa. ? German con alto contenido de grasa. Brewer incluye lo siguiente: ? Perros calientes y salchichas. ? Chuletas. ? Jam?n y tocino. ? Productos l?cteos ricos en grasas. Brewer incluye lo siguiente: ? Leche entera. ? [...] lograrlo, consulte a jordan m?dico. Instrucciones generales [place] cheryle medicamentos ?nicamente seg?n las indicaciones. No tome aspirina ni ibuprofeno a menos que se lo indiquen. Controle si hay alg?n cambio en cheryle s?ntomas. No se incline hacia adelante si eso empeora cheryle s?ntomas. Comun?quese con un m?dico si: Aparecen nuevos s?ntomas. Tiene dificultad para hacer lo siguiente: ? Beber. ? Tragar. ? Jackson. Siente dolor al tragar. Tiene sibilancias. Tiene [...] Reviewed: 2024-01-01 Elsevier Patient Education ? 2024 [employer] * Patient Education Note - Karla Xiao MD - 03/04/2025 3:07 PM EDT Images from the original note were not included. Patient Education Table of Contents ERGE en adultos: cambios en la dieta (GERD in Adults: Diet Changes) To view videos and all your education online visit, [email or web address] or scan this QR code with your [...] incluir: Alimentos con gran cantidad de fibra. Brewer incluye lo siguiente: ? Frutas y verduras. [...] otras prote?bere German de alto contenido graso ibraihma carne grasa de andres o cerdo, salchichas, [...] Reviewed: 2024-01-01 Elsevier Patient Education ? 2024 Workface. * Patient Education Note - Karla Xiao MD - 03/04/2025 3:06 PM EDT Images from the original note were not included. Patient Education Table of Contents ERGE en adultos: cambios en la dieta (GERD in Adults: Diet Changes) To view videos and all your education online visit, [email or web address] or scan this QR code with your [...] incluir: Alimentos con gran cantidad de fibra. Brewer incluye lo siguiente: ? Frutas y verduras. [...] Reviewed: 2024-01-01 Elsevier Patient Education ? 2024 [employer] documented in this encounter Plan of Treatment Not on file documented as of this encounter Visit Diagnoses Diagnosis Epigastric pain- Primary Abdominal pain, epigastric Change in voice Other voice and resonance disorders Overweight Dietary counseling Dietary surveillance and counseling Exercise counseling documented in this encounter Additional Health Concerns Assessment Noted Time PHQ-9 Depression Total Score: 24 025 11:21 AM EDT documented as of this encounter Care Teams Silviculture Professor Relationship Specialty Start Date End Date Karla Xiao MD [address] [place] [phone] PCP - General Internal Medicine 11/18/24 documented as of this encounter
--- OUTSIDE RECORDS SUMMARY | 2025-03-05 15:21 | XMS_ITS | Encounter Summary ---
Author Organization [employer] Address [address] [facility] [address] [place] [address] Care Team Providers Care Wind Turbine Machinist Name Role Phone Karla Xiao MD Primary Care Provider + Encounter Details Date Type Department Care Team (Late st Contact Info) Description 03/04/2025 Orders Only [facility] MED[facility] [address] [place], [place] [phone] Karla Xiao MD [address] [place], [place] [phone] Social History Tobacco Use Types Packs/Day Years [...] Questionnaire -2 Score 6 03/04/2025 11:21 AM Carey Worthy MA * Little interest or pleasure in doing things Answer Date of Assessment Author Nearly every day 03/04/2025 11:21 AM Carey Worthy MA * Feeling down, depressed, or hopeless Answer Date of Assessment Author Nearly every day 03/04/2025 11:21 AM Carey Worthy MA * Trouble falling or staying asleep, [...] 11:21 AM EDT Carey Dominguez MA * Thoughts that you would be better off or hurting yourself in some way Answer Date of Assessment Author Not at all 03/04/2025 11:21 AM EDT Carey Dominguez MA * Patient Health Questionnaire-9 Score Answer Date of Assessment Author 24 03/04/2025 11:21 AM EDT Carey Dominguez MA * Over the last 2 weeks, how often have you been bothered by any of the following problems? Question Answer Date of Assessment Author Feeling nervous, anxious, or on edge 3 03/04/2025 11:20 AM EDT Carey Dominguez MA Not being able to stop or co ntrol worrying 3 03/04/2025 11:20 AM CARLITOST Carey Dominguez MA Worrying too much about [...] on file documented as of this encounter Procedures Procedure Name Priority Date/Time Associated Diagnosis Comments CHLAMYDIA/TRICHOMON /NEISSERIA GONORRHOEAE, PCR, URINE Routine 03/04/2025 11:53 AM EDT documented in this encounter Results * Chlamydia/Trichomonas/Neisseria gonorrhoeae, PCR, Urine (03/04/2025 11:53 AM EDT) CT PCR, Urine NOT DETECTED Not Detect. [facility] Comment:A not detected test result does not exclude the possibilityof infection because test results can be affected byimproper specimen collection, concurrent antibiotic therapy,or the number of organisms in the specimen which may bebelow the sensitivity of the test. As with many diagnostictests, results from the Xpert CT/NG assay should beinterpreted in conjunction with other laboratory andclinical data available to the clinician.The Xpert CT/NG assay should not be used for the evaluationof suspected sexual abuse or for other medico-legalindications. Additional testing is recommended in anycircumstance when false positive or false negative resultscould lead to adverse medical, social or psychologicalconsequences. NG PCR, Urine NOT DETECTED Not Detect. [facility] Comment:A not detected test result does not exclude the possibilityof infection because test results can be affected byimproper specimen collection, concurrent antibiotic therapy,or the number of organisms in the specimen which may bebelow the sensitivity of the test. As with many diagnostictests, results from the Xpert CT/NG assay should beinterpreted in conjunction with other laboratory andclinical data available to the clinician.The Xpert CT/NG assay should not be used for the evaluationof suspected sexual abuse or for other medico-legalindications. Additional testing is recommended in anycircumstance when false positive or false negative resultscould lead to adverse medical, social or psychologicalconsequences. 03/04/2025 11:5 3 AM EDT 03/04/2025 12:48 PM EDT us Karla Xiao MD LAB URINE ORDERABLES Fin al Result [facility] [address] [place] [phone] [phone] documented in this encounter Visit Diagnoses Not on filedocumented in this encounter Additional Health Concerns Assessment Noted Time PHQ-9 Depression Total Score: 24 025 11:21 AM EDT documented as of this encounter Care Teams Wind Turbine Machinist Relationship Specialty Start Date End Date Karla Xiao MD [address] [place] [phone] PCP - General Internal Medicine 11/18/24 documented as of this encounter
--- OUTSIDE RECORDS SUMMARY | 2025-03-05 15:21 | XMS_ITS | Clinical Summary ---
Author Organization [email or web address] Address [address] [facility] [address] [place] [address] Care Team Providers Care Epic Manager Name Role Phone Karla Xiao MD Primary [...] me Epigastric pain 11/18/2024 Assessment & Plan (03/04/2025 5:02 PM EDT): Most likely related to GERD, continue sucralfate as needed for now, stressed importance of dietary modifications Stressed importance of checking H. pylori infection, will treat as needed Follow-up with me in 3 months, may need GI referral Assessment & Plan (11/19/2024 8:53 AM EDT): Rule out H. pylori infection, apparently never treated. Start sucralfate 1 g 3 times daily AC meals x 2 weeks and follow-up with sc Order labs We discussed about lifestyle modifications including avoiding sodas, fat and greasy foods, high calorie meals. Advised to have small fracture meals Advised regarding increase water intake and fiber. H. pylori infection 11/15/2024 Change in voice 11/15/2024 Assessment & Plan (03/04/2025 5:01 PM EDT): Most likely related to GERD. Currently asymptomatic, will follow-up as needed, patient is a non-smoker Left knee pain 11/15/2024 Low back pain 11/15/2024 Shoulder pain 11/15/2024 Tubular adenoma of colon 11/15/2024 Overview (11/18/2024): Sp colonoscopy at [facility] on 06/2021 Assessment & Plan (11/18/2024 10:30 AM EDT): Sp colonoscopy at [facility] on 06/2021 Next colonoscopy due on [...] Encounters Date Type Department Care Team Description 03/05/2025 Telephone [facility] [address] [place] [phone] Karla Xiao MD colonoscopy update 03/04/2025 10:30 AM EDT Office Visit [address] [address] Karla Xiao MD Epigastric pain (Primary Dx); Change in voice; Overweight; Dietary counseling; Exercise counseling 03/04/2025 Orders Only [address] [address] Karla Xiao MD 03/04/2025 Travel 02/27/2025 11:15 AM EDT Office Visit [facility] [address] [place] [address] Tsering Hudson, OD Conjunctival melanosis of both eyes (Primary Dx); Hypermetropia, bilateral; Dry eyes, bilateral; Posterior vitreous detachment of both eyes 02/27/2025 Travel 02/26/2025 Telephone [facility] [address] [place] [address] Karla Xiao MD Chart Prep 12/10/2024 Telephone [facility] [address] [place] [address] Karla Xiao MD Appointment Request 12/06/2024 Refill [facility] [address] [place] [address] Karla Xiao MD from Last 3 Months [...] Date Last Done Comments CT Colonography 1967 FIT DNA/Cologuard 1967 FIT 1967 FOBT 1967 Sigmoidoscopy 1967 DTaP/Tdap/Td Vaccines (1 - Tdap) 10/02/1986 Hepatitis B Vaccines (1 of 3 - 19+ 3-dose series) 10/02/1986 Pneumococcal Vaccine: 50+ Years (1 of 1 - PCV) 10/02/2017 Zoster Vaccines (1 of 2) 10/02/2017 COVID-19 Vaccine ( season) 2025 05/23/2022, 06/25/2021 Influenza Vaccine (#1) 2025 , 04/20/2023, 05/23/2022, Additional history exists Depression Monitoring 09/01/2025 03/04/2025, 025 Disability Screening 11/18/2025 11/18/2024 SDOH Screening 11/18/2025 11/18/2024 Alcohol/Substance Use Screening 03/04/2026 03/04/2025 Tobacco Screening 03/04/2026 03/04/2025 Colonoscopy 07/08/2028 07/08/2021 Colorectal Cancer Screening 07/08/2028 Lipid Panel 11/18/2029 11/18/2024 RSV Patients and [...] Procedure Name Priority Date/Time Associated Diagnosis Comments CHLAMYDIA/TRICHOMONA S/NEISSERIA GONORRHOEAE, PCR, URINE Routine 03/04/2025 11:53 AM EDT HEPATITIS PANEL, GENERAL Routine 11/18/2024 11:24 AM EDT Sexually transmitted disease counseling HIV 1/2 ANTIGEN/ANTIBODY, FOURTH GENERATION W/RFL Routine 11/18/2024 11:24 AM EDT Sexually transmitted disease counseling LIPID PANEL WITH REFLEX TO DIRECT LDL Routine 11/18/2024 11:24 AM EDT Epigastric pain HM COLONOSCOPY Routine 07/08/2021 from Last 3 Months or Most Recently Relevant to Health Maintenance Results * Chlamydia/Trichomonas/Neisseria gonorrhoeae, PCR, Urine (03/04/2025 11:53 AM EDT) CT PCR, Urine NOT DETECTED Not Detect. [facility] Comment:A not detected test result [...] NG PCR, Urine NOT DETECTED Not Detect. [facility] Comment:A not detected test result [...] MD LAB URINE ORDERABLES Fin al Result Performing Organization Address [facility] de Phone Number [facility] [address] [place] [address] [phone] * (ABNORMAL) Lipid Panel with Reflex to Direct LDL (11/18/2024 11:24 AM EDT) Triglycerides 75 <150 mg/dL [facility] Comment:Desirable Triglyceri de: less than 150 mg/dLBorderline High Triglyceride 150-199 mg/dLHigh Triglyceride: 200-499 mg/dLVery High Triglyceride: greater than or equal to 5OO mg/dL Cholesterol 184 <200 mg/dL [facility] Comment:Desirable Cholestero l: less than 200 mg/dLBorderline High Cholesterol: 200-239 mg/dLHigh Cholesterol: greater than 239 mg/dL LDL Cholesterol Calculated 111(H) <100 mg/dL [facility] Comment:Desirable LDL: less than 100 mg/dLNear Optimal/Above Optimal LDL: 110- 129 mg/dLBorderline High LDL: 130-159 mg/dLHigh LDL: 160-189 mg/dLVery High LDL: greater than or equal to 190 mg/dL HDL Cholesterol 58 >40 mg/dL [facility] Comment:Desirable HDL: great er than 40 mg/dL Note: This HDL assay may give artificially low results in patients with liver disease. Blood 11/18/2024 11:2 4 AM EDT 11/18/2024 12:55 PM EDT Karla Xiao MD LAB BLOOD ORDERABLES Fin al Result Performing Organization Address [facility] Co de Phone Number [facility] [address] [place] [address] [phone] * Hepatitis Panel, General (11/18/2024 11:24 AM EDT) Hepatitis A IgM Nonreactive Nonreactive [facility] Comment:IgM antibodies to JEWELL V not detected; does not exclude earlyacute or recovered HAV infection. ~Hepatitis B Surface Antibody NONREACTIVE Nonreactive [facility] Comment:Nonreactive: < 8.00 mIU/mL Hepatitis B Core Antibody Nonreactive Nonreactive [facility] Hepatitis C Antibody Nonreactive Nonreactive [facility] Comment:Antibodies to HCV no t detected; does not exclude early acuteHCV infection. Hepatitis B Surface Ag Negative Negative [facility] Blood 11/18/2024 11:2 4 AM EDT 11/18/2024 12:55 PM EDT us Karla Xiao MD LAB BLOOD ORDERABLES Fin al Result [facility] [address] [place] [address] [phone] * HIV-1/2 Antigen and Antibodies, Fourth Generation, with Reflexes (11/18/2024 11:24 AM EDT) Pathologist [facility] HIV AB/AG Nonreactive Nonreactive [facility] Comment:HIV-1 p24 Ag and/or HIV-1/HIV-2 Ab not detected.A test result that is nonreactive does not exclude thepossibility of exposure to or infection with HIV-1 and/orHIV-2. Nonreactive results in this assay for individualswith prior exposure to HIV-1 and/or HIV-2 may be due toantigen and antibody levels that are below the limit ofdetection of this assay.The [employer] HIV Ag/Ab Combo assay result andsupplemental assay results should be interpreted inconjunction with the patient's clinical presentation,history and other laboratory results. If the results areinconsistent with clinical evidence, additional testing issuggested to confirm the result. Blood Venous blood specimen / Unknown 11/18/2024 11:24 AM EDT 11/18/2024 12:55 PM EDT us Karla Xiao MD LAB BLOOD ORDERABLES Fin al Result Performing Organization Address City/[facility]/ZIP Co de Phone Number [facility] [address] [place] [address] [phone] * (ABNORMAL) Hm Colonoscopy (07/08/2021) Colonoscopy Abnormal( A) Normal Comment:repeat in 7 yrs us Historical Provider HEALTH MAINTENANCE Final Result from Last 3 Months or Most Recently Relevant to Health Maintenance Insurance [facility] , [address] [place] [address] Care Teams Epic Manager Relationship Specialty Start Date End Date Karla Xiao MD [address] [place] [phone] PCP - General Internal Medicine 11/18/24
--- OUTSIDE RECORDS SUMMARY | 2025-03-05 15:21 | XMS_ITS | Encounter Summary ---
Author Organization [employer] Address [address] [facility] [address] [place] [address] Care Team Providers Care Supervisor Keymodule Assembly Name Role Phone Karla Xiao MD Primary [...] Author Nearly every day 03/04/2025 11:21 AM Craey Worthy MA * Trouble concentrating on things, [...] documented as of this encounter Care Teams Supervisor [employer]ym[employer]ule Assembly Relationship Specialty Start Date End Date Karla Xiao MD [address] [place] [address] PCP - General Internal Medicine 11/18/24 documented as of this encounter
--- OUTSIDE RECORDS SUMMARY | 2025-03-05 15:21 | XMS_ITS | Encounter Summary ---
Author Organization [employer] Address [address] [facility] [address] [place] [address] Care Team Providers Care Bottle Gauger Name Role Phone Karla Xiao MD Primary Care Provider + Reason for Visit * Reason Onset Date Comments colonoscopy update 03/05/2025 Encounter Details Date Type Department Care Team ([facility] Contact Info) Description 03/05/2025 Telephone [facility] [address] [place], [place] [phone] Karla Xiao MD [address] [place], [place] [phone] colonoscopy update Social History Tobacco Use Types Packs/Day Years [...] AM EST documented as of this encounter Miscellaneous Notes * Telephone Encounter - Carey Dominguez MA - 03/05/2025 2:08 PM EDT Benign adenomatous polyp repeat in 7 yrs documented in this encounter Plan of Treatment Not on file documented as of this encounter Procedures Procedure Name Priority Date/Time Associated Diagnosis Comments COLONOSCOPY Routine 07/08/2021 documented in this encounter Results * (ABNORMAL) Colonoscopy (07/08/2021) Colonoscopy Abnormal( A) Normal Comment:repeat in 7 yrs us Historical Provider HEALTH MAINTENANCE Final Result documented in this encounter Visit Diagnoses Not on filedocumented in this encounter Additional Health Concerns Assessment Noted Time PHQ-9 Depression Total Score: 24 025 11:21 AM EDT documented as of this encounter Care Teams Bottle Gauger Relationship Specialty Start Date End Date Karla Xiao MD [address] [place] [phone] PCP - General Internal Medicine 11/18/24 documented as of this encounter
== END 2025-03-05 13:00 | disposition home or self-care (01) ==
LOC: HO.HHCLNP 12:59
PROVIDERS: Visit Provider Internal Medicine
DX: R10.13 Epigastric pain (principal)
CPT/HCPCS: 87338